=== PATIENT | male | born 2000 | race Caucasian/White ===

== ENCOUNTER 2020-04-14 11:16 | Emergency (ER) | payer SELFPAY ==
[~2020-04-14] VITALS: Ht 167.6 cm; Wt 64.9 kg
[2020-04-14 11:28] VITALS: BP 129/76
--- NOTE | 2020-04-14 12:02 | NUR ---
PIV PLACED FOR CT WITH CONTRAST.
[2020-04-14 12:11] LABS: MEAN CORPUSCULAR HEMOGLOBIN 31.7 pg (27.5-34.5); MEAN CORPUSCULAR HGB CONC 33.5 g/dL (33.2-36.2); MEAN CORPUSCULAR VOLUME 94.7 fL (81-97); MEAN PLATELET VOLUME 8.4 fL (7.4-10.4); PLATELET COUNT 273 x10^3/uL (130-400); RED BLOOD COUNT 4.54 x10^6/uL (4.38-5.82); RED CELL DISTRIBUTION WIDTH 13.6 % (9.4-14.8)
[2020-04-14 12:19] LABS: ALBUMIN 3.6 g/dL (3.4-5.0); ANION GAP 5 mmol/L (5-15); CALCIUM 8.9 mg/dL (8.5-10.1); CHLORIDE 108 mmol/L (98-107)
[2020-04-14 12:21] LABS: CREATININE 0.73 mg/dL (0.7-1.3)
[2020-04-14 12:46] LABS: BASOPHILS # (AUTO) 0.05 x10^3/uL (0-0.3); BASOPHILS % (AUTO) 0 % (0-1); EOSINOPHILS # (AUTO) 0.05 x10^3/uL (0-0.8); EOSINOPHILS % (AUTO) 0 % (1-7); LYMPHOCYTES # (AUTO) 1.03 x10^3/uL (1-6.1); LYMPHOCYTES % (AUTO) 7 % (22-44); MD SCAN; MONOCYTES # (AUTO) 0.97 x10^3/uL (0-1.4); MONOCYTES % (AUTO) 7 % (2-9); NEUTROPHILS # (AUTO) 11.97 x10^3/uL (1.8-8.0); NEUTROPHILS % (AUTO) 85 % (42-75)
[2020-04-14] MEDS ORDERED: OMNIPAQUE 350 MG/ML, 75ML BOTTLE ONE (13:10)
--- NOTE | 2020-04-14 13:13 | NUR ---
ALL RESULTS ARE BACK AT THIS TIME. CHART UP FOR RECHECK.
[2020-04-14] MEDS ORDERED: BENZOCAINE AEROSOL SPRAY 20%, 60ML ONE (13:39)
[2020-04-14] MEDS ORDERED: LIDOCAINE-MPF 1%, 5ML ONE (13:39)
[2020-04-14] MEDS ORDERED: BENZOCAINE AEROSOL SPRAY 20%, 60ML TP ONE (14:00)
[2020-04-14] MEDS ORDERED: LIDOCAINE 1%, 10ML INFIL ONE (14:00)
--- NOTE | 2020-04-14 14:14 | NUR ---
SET FOR I&D OF ABSCESS TO RIGHT THROAT. CONSENT SIGNED. H[facility]IC[facility] [employer] ADMIN.
== END 2020-04-14 15:07 | disposition home or self-care (01) ==
LOC: ED 11:47
DX: J36 Peritonsillar abscess (principal)
CPT/HCPCS: 36415; 42999; 70491; 80048; 82040; 85025; 99285; Q9967; 99284